=== PATIENT | male | born 1945 | race African-American/Black ===

== ENCOUNTER 2019-01-06 11:30 | Emergency (ER) | payer OTHER ==
[~2019-01-06] VITALS: Ht 172.7 cm; Wt 65.1 kg
[2019-01-06 12:28] LABS: ABSOLUTE NEUTROPHILS 10.7 thou/uL (1.4-8.2); BASOPHILS 0.7 % (0.0-2.0); EOSINOPHILS 0.6 % (0.0-3.0); HEMATOCRIT 27.8 % (42.0-52.0); HEMOGLOBIN 9.1 gm/dL (14.0-18.0); LYMPHOCYTES 10.7 % (24.0-44.0); MCH 27.6 pg (26.0-34.0); MCHC 32.6 g/dL (28.0-37.0); MCV 84.5 fL (80.0-100.0); PLATELET COUNT 631 thou/uL (150-400); RBC 3.29 mil/uL (4.50-6.00); RDW 15.3 % (10.5-14.5); WBC 13.1 thou/uL (4.0-11.0)
[2019-01-06 12:31] LABS: ANION GAP 18 mmol/L (7-16); BUN 119 mg/dL (7-18); CHLORIDE 92 mmol/L (98-107); CO2 17 mmol/L (21-32); CREATININE 8.1 mg/dL (0.7-1.3); GLUCOSE 144 mg/dL (74-106); POTASSIUM 5.5 mmol/L (3.5-5.1); SODIUM 127 mmol/L (136-145)
[2019-01-06 12:41] LABS: ALBUMIN 2.8 g/dL (3.4-5.0); SGOT 24 U/L (15-37); SGPT 12 U/L (30-65); TOTAL BILIRUBIN 0.4 mg/dL (<0.1-1.0); TOTAL PROTEIN 9.4 g/dL (6.4-8.2); TROPONIN-I <0.06 ng/mL (<0.06)
[2019-01-06 13:00] LABS: MAGNESIUM 2.8 mg/dL (1.8-2.4)
[2019-01-06 14:42] VITALS: BP 121/74
--- NOTE | 2019-01-07 14:02 | EKG ---
[place] [address] [place] [facility] [place] [address] ELECTROCARDIOGRAM REPORT Name: HECTOR JENKINS Room #: [facility]P [facility] [id number] ������������������ Admission: 01/06/19 ������������������ Attend Phys: Discharge: 01/06/19 ������������������ Date of : 45 Report #: [id number] ����������������������������������������������������������������� [id number] THIS REPORT FOR: //name// [facility] ED Test Date: 2019-01-06 Test Time: 11:30:03 Pat Name: HECTOR JENKINS Department: Room: Gender: M Light Technician: BRANDEE : 1945 Requested By: Felipe Clark Order Number: [id number] MD: Feliciano Guillaume Measurements Intervals [place] Rate: 97 P: 49 IA: 132 QRS: 42 QRSD: 74 T: 242 QT: 320 QTc: 407 Interpretive Statements Sinus rhythm Abnormal R-wave progression, early transition Nonspecific ST segment abnormality No previous ECG available for comparison Electronically Signed On 01-07-2019 14:02:26 CDT by Feliciano Guillaume [email or web address] ��������������������������������������������� <ELECTRONICALLY SIGNED> ���������������������������������������� By: Feliciano Guillaume MD, [facility] ��������������������������������������������� 01/07/19 1402 1130 1130 Feliciano Guillaume MD, FACC /EPI
== END 2019-01-06 14:43 | disposition home or self-care (01) ==
LOC: ER 11:30
PROVIDERS: Emergency Medicine
DX: E86.0 Dehydration (principal); C61 Malignant neoplasm of prostate; N17.9 Acute kidney failure, unspecified; D64.9 Anemia, unspecified; J98.11 Atelectasis; E87.5 Hyperkalemia; E88.09 Other disorders of plasma-protein metabolism, not elsewhere classified